=== PATIENT | female | born 1945 | race Caucasian/White ===

== ENCOUNTER → 2017-07-05 | Outpatient (CLI) | payer OTHER ==
[~2017-07-05] VITALS: Ht 165.1 cm; Wt 78.0 kg
[~2017-07-05] MED LIST: ASPIRIN325 PO; ATORVASTATIN CA40 MG PO; CENTRUM SILVER1 EAC4 PO; FISH OIL 1,001000 M2 PO; IRON325 PO; LEVEMIR FL100 UNIT/2 SUBQ; METFORMIN HCL1000 MG PO; NEURONTIN 300300 M1 PO; NOVOLOG FL100 UNIT/M SUBQ; PROTONIX40 M1 PO; QUINAPRIL HCL20 MG PO; TOPROL XL100 MG PO; VITAMIN D2000 UNIT PO
--- NOTE | ~2017-07-05 | P ---
[facility] [place] [address] [place] [address] PROCEDURE REPORT Name: AMANDA CAICEDO Room #: REG [facility]#: [id number] Admission: 07/05/17 Attend Phys: Silvano Scott MD Discharge: Date of : 47 Report #: [id number] THIS REPORT FOR: //name// CC: Sam Jackson MD DATE OF SERVICE: 07/05/2017 BRIEF HISTORY: The patient is a 72-year-old woman with family history of colon cancer, mother early 70s. PREOPERATIVE DIAGNOSIS: Family history of colon cancer. POSTOPERATIVE DIAGNOSIS: Family history of colon cancer. MEDICATIONS: Deep sedation with propofol per anesthesia. SPECIMEN: None. ESTIMATED BLOOD LOSS: None. PROCEDURE: Aborted colonoscopy secondary to inadequate prep. FINDINGS: Prior to propofol sedation, procedure of colonoscopy discussed with the patient as well as potential risks and its complications. She indicates she understands and desires to proceed. DESCRIPTION OF PROCEDURE: With the patient in left lateral decubitus position, digital examination was completed which revealed no abnormalities. Subsequently, the [employer] video colonoscope was introduced in the rectum, advanced under direct vision. Immediately upon entering the rectum, there was a large amount of liquidy stool coating much of the mucosa. As we advanced the scope in the distal sigmoid, the prep seemed to get better, but in the proximal sigmoid, large pools of liquidy stool with particulate matter were identified. It was felt that we would not be able to clear these pools of liquidy stool due to the particulate matter. Therefore, it was thought to be in the best interest of the patient to abort the colonoscopy and have return at a later date with additional prepping. CONDITION OF THE PATIENT UPON DISCHARGE: Following procedure, the patient drowsy. She will be discharged home when fully ambulatory. INSTRUCTIONS TO THE PATIENT AND FAMILY AT THE TIME OF DISCHARGE: We will have the patient return at a later date with additional prepping. She may need a [facility] [address] [place] [address] PROCEDURE REPORT Name: AMANDA CAICEDO Room #: [facility]#: [id number] Admission: 07/05/17 Attend Phys: Silvano Scott MD Discharge: Date of : 47 Report #: [id number] 2-day prep. Otherwise, return to the care of Dr. Piero Jackson, return to see me as needed. <ELECTRONICALLY SIGNED> By: Silvano Scott MD 07/09/17 [id number] Silvano Scott MD /nt
== END | disposition home or self-care (01) ==
LOC: GI 06-28 07:38
DX: Z80.0 Family history of malignant neoplasm of digestive organs (principal); I10 Essential (primary) hypertension; E78.5 Hyperlipidemia, unspecified; K21.9 Gastro-esophageal reflux disease without esophagitis; E11.9 Type 2 diabetes mellitus without complications; I25.2 Old myocardial infarction; Z95.5 Presence of coronary angioplasty implant and graft; Z79.4 Long term (current) use of insulin; Z98.890 Other specified postprocedural states; Z90.49 Acquired absence of other specified parts of digestive tract; Z79.82 Long term (current) use of aspirin; Z79.899 Other long term (current) drug therapy
CPT/HCPCS: 62110; 62900

== ENCOUNTER → 2017-09-25 | Outpatient (CLI) | payer OTHER | LOC: RAD 15:18 | DX: Z12.31 Encounter for screening mammogram for malignant neoplasm of breast (principal) ==

== ENCOUNTER → 2018-03-04 | Outpatient (CLI) | payer OTHER | LOC: RAD 10:14 | DX: M25.511 Pain in right shoulder (principal) ==

== ENCOUNTER → 2019-06-12 | Outpatient (CLI) | payer OTHER | LOC: SJCVC 10:45 | DX: I21.09 ST elevation (STEMI) myocardial infarction involving other coronary artery of anterior wall (principal); I44.0 Atrioventricular block, first degree; R94.31 Abnormal electrocardiogram [ECG] [EKG]; I10 Essential (primary) hypertension; I25.10 Atherosclerotic heart disease of native coronary artery without angina pectoris; E78.00 Pure hypercholesterolemia, unspecified; K21.9 Gastro-esophageal reflux disease without esophagitis; E11.9 Type 2 diabetes mellitus without complications; I25.2 Old myocardial infarction; Z79.82 Long term (current) use of aspirin; Z79.899 Other long term (current) drug therapy; Z90.49 Acquired absence of other specified parts of digestive tract ==

== ENCOUNTER → 2019-12-15 | Outpatient (CLI) | payer OTHER | LOC: SJCVCIMAG 08:59 | PROVIDERS: ATTEND Internal Medicine Cardiovascular Disease | DX: R94.31 Abnormal electrocardiogram [ECG] [EKG] (principal); I08.3 Combined rheumatic disorders of mitral, aortic and tricuspid valves; I44.0 Atrioventricular block, first degree; I10 Essential (primary) hypertension; I25.10 Atherosclerotic heart disease of native coronary artery without angina pectoris; E78.00 Pure hypercholesterolemia, unspecified; K21.9 Gastro-esophageal reflux disease without esophagitis; E78.5 Hyperlipidemia, unspecified; E11.9 Type 2 diabetes mellitus without complications; I25.2 Old myocardial infarction ==

== ENCOUNTER → 2020-06-28 | Outpatient (CLI) | payer OTHER | LOC: SJCVC 12:45 | PROVIDERS: ATTEND Internal Medicine Cardiovascular Disease | DX: I44.0 Atrioventricular block, first degree (principal); R94.31 Abnormal electrocardiogram [ECG] [EKG]; I10 Essential (primary) hypertension; I25.10 Atherosclerotic heart disease of native coronary artery without angina pectoris; E78.00 Pure hypercholesterolemia, unspecified; K21.9 Gastro-esophageal reflux disease without esophagitis; I25.2 Old myocardial infarction; Z79.84 Long term (current) use of oral hypoglycemic drugs; Z79.899 Other long term (current) drug therapy; Z98.61 Coronary angioplasty status; Z82.49 Family history of ischemic heart disease and other diseases of the circulatory system ==

== ENCOUNTER → 2021-01-05 | Outpatient (CLI) | payer OTHER | LOC: SJCVCIMAG 07:20 | PROVIDERS: ATTEND Internal Medicine Cardiovascular Disease | DX: I25.10 Atherosclerotic heart disease of native coronary artery without angina pectoris (principal); I10 Essential (primary) hypertension; E78.00 Pure hypercholesterolemia, unspecified; K21.9 Gastro-esophageal reflux disease without esophagitis; Z79.82 Long term (current) use of aspirin; Z79.84 Long term (current) use of oral hypoglycemic drugs; Z79.899 Other long term (current) drug therapy ==